=== PATIENT | female | born 1985 | race African-American/Black ===

== ENCOUNTER 2018-07-07 04:39 | Emergency (ER) | payer SELFPAY ==
[~2018-07-07] VITALS: Ht 162.6 cm; Wt 114.0 kg
[2018-07-07] MEDS ORDERED: IBUPROFEN 800MG TABLET PO ONE (07:30)
[2018-07-07] MEDS ORDERED: LIDOCAINE HCL/PF 1% 10 MG/ML 5ML VIAL IJ ONE (08:30)
[2018-07-07] MEDS ORDERED: BACITRACIN ZINC OINT UDPKT TOP ONE (08:30)
[2018-07-07] MEDS ORDERED: TETANUS, DIPHTHERIA, PERTUSSIS VAC/PF 0.5ML (>7YR OLD) IM ONE (08:30)
[2018-07-07 09:50] VITALS: BP 133/76
== END 2018-07-07 09:58 | disposition home or self-care (01) ==
LOC: ER 04:39
DX: S90.852A Superficial foreign body, left foot, initial encounter (principal); Z90.49 Acquired absence of other specified parts of digestive tract; X58.XXXA Exposure to other specified factors, initial encounter; Y93.89 Activity, other specified; Y92.89 Other specified places as the place of occurrence of the external cause; Y99.8 Other external cause status
CPT/HCPCS: 10060; 73630; 81025; 90471; 90715; 99283; J3490; Z7610